=== PATIENT | male | born 1995 | race Two or more races ===

== ENCOUNTER 2022-03-30 12:08 | Emergency (ER) | payer MEDICAID, OTHER ==
[~2022-03-30] VITALS: Ht 177.8 cm; Wt 100.0 kg
[2022-03-30] MEDS ORDERED: FLUORESCEIN SODIUM 1MG/STRIP BOTHEYE ONE (13:00)
[2022-03-30] MEDS ORDERED: TETRACAINE 0.5% OPHTH DROPS 4ML BOTHEYE ONE (13:00)
[2022-03-30] MEDS ORDERED: LIDOCAINE HCL 1% 20ML VIAL (Pyxis) INJ INFIL ONE (14:00)
[2022-03-30 14:31] LABS: HEMATOCRIT. 43.4 % (42.0-52.0); HEMOGLOBIN. 15.3 g/dL (14.0-18.0); MEAN CORPUSCULAR HEMOGLOBIN 30.3 pg (28.0-32.0); MEAN CORPUSCULAR VOLUME 85.9 fL (80.0-94.0); PLATELET 205 x1000/uL (130-400); RED BLOOD CELL COUNT 5.05 mill/uL (4.7-6.1); RED CELL DISTRIBUTION WIDTH 13.2 % (11.6-14.6)
[2022-03-30 14:49] LABS: CHLORIDE 105 mEq/L (98-107)
[2022-03-30 14:50] LABS: ETHANOL BLOOD < 10 mg/dL
[2022-03-30] MEDS ORDERED: KETAMINE HCL 50 MG/ML 10ML IV ONE (15:00)
[2022-03-30] MEDS ORDERED: TETANUS, DIPHTHERIA, PERTUSSIS VAC/PF 0.5ML (>10YR OLD) IM ONE (15:15)
[2022-03-30] MEDS ORDERED: MIDAZOLAM HCL 2 MG/2 ML VIAL IV ONE ×2 (16:15→16:45)
[2022-03-30 17:31] LABS: PLATELET ESTIMATE NORMAL
[2022-03-31 13:36] VITALS: BP 120/69
== END 2022-03-31 10:54 | disposition short-term general hospital (02) ==
LOC: ER 12:08
DX: S02.32XA Fracture of orbital floor, left side, initial encounter for closed fracture (principal); S02.832A Fracture of medial orbital wall, left side, initial encounter for closed fracture; S06.89AA Other specified intracranial injury with loss of consciousness status unknown, initial encounter; S09.8XXA Other specified injuries of head, initial encounter; H05.222 Edema of left orbit; Z20.822 Contact with and (suspected) exposure to COVID-19; F14.10 Cocaine abuse, uncomplicated; R03.0 Elevated blood-pressure reading, without diagnosis of hypertension; Y04.2XXA Assault by strike against or bumped into by another person, initial encounter; Y93.89 Activity, other specified; Y92.89 Other specified places as the place of occurrence of the external cause
CPT/HCPCS: 36415; 70450; 70486; 80053; 80320; 85025; 87426; 90471; 90715; 96374; 96375; 99152; 99285; C9803; J2250; J3490; G0480